=== PATIENT | male | born 1975 | race African-American/Black ===

== ENCOUNTER 2017-01-10 08:26 | Emergency (ER) ==
[2017-01-10 08:37] VITALS: BP 120/84; TEMP 97.1; BMI 21.6
--- NOTE | 2017-01-10 08:50 | ED.PDOC ---
General ED Provider: Dr. TOSHA ELLIOTT Chief Complaint: Hip Pain/Injury Stated Complaint: Left hip pain yesterday with walking up steps. Williams a pop and now painful with moverments or walking. Time Seen by Physician: 08:45 Mode of Arrival: Walk-In Information Source: Patient, Family Primary Care Provider: FERNANDO LUCAS Nursing and Triage Documentation Reviewed and Agree: Yes Review of Systems - Review Of Systems Constitutional: Reports: No symptoms Musculoskeletal: Reports: Joint pain (Left hip) Skin: Reports: No symptoms. Denies: Bruising, Change in color (At site of L hip ) All Other Systems: Reviewed and Negative Past Medical History - Past Medical History Previously Healthy: Yes Endocrine: Reports: None Cardiovascular: Reports: None Respiratory: Reports: Asthma Hematological: Reports: None Gastrointestinal: Reports: None Genitourinary: Reports: Kidney stones (2004 once- stone not recovered, one episode of hematuria one year ago- not since) Neuro/Psych: Reports: None Musculoskeletal: Reports: None Cancer: Reports: None Other Pertinent Past Medical History: Jaw wired - Surgical History General Surgical History: Reports: Other ( jaw wired shut; tordes pallitini removed) - Family History Family History: Reports: Unknown - Social History Smoking Status: Former smoker Hx Substance Use: No Alcohol Screening: Occasionally - Immunizations Tetanus Shot up to Date: Yes Physical Exam - Physical Exam Appearance: Well-appearing Pain Distress: Mild (with L hip movemtnt) Respiratory: Airway patent, Respirations nonlabored Musculoskeletal: Normal strength, ROM intact (Able to raise L and R legs separately with flexion at hips without difficulty. ROM L hip intact.), No edema Skin: Warm, Dry, Normal color Neurological: Sensation intact, Motor intact, Reflexes intact, Alert, Oriented Psychiatric: Affect appropriate, Mood appropriate Interpretation - Radiology Interpretation Radiology Interpretation By: Radiologist Radiology Results: Negative (Comparrison with CT 09/12/16) Exam Interpreted: Other (L Hip/Pelvis) Re-Evaluation - Re-Evaluation Time of Re-Evaluation: 09:55 Status: Unchanged Vital Signs Stable: Yes Appearance: NAD (Educated re negative X Ray; pain appears to be muscular in origin) Critical Care Note - Critical Care Note Total Time (mins): 15 Course - Course Orders, Labs, Meds: Orders Category Date Time Status PELVIS & JESUS HIPS Stat RADS 01/10/17 08:54 Completed Vital Signs: Temp Pulse Resp BP Pulse Ox 01/10/17 08:29 97.1 F L 80 16 120/84 97 Departure - Departure Time of Disposition: 10:12 Disposition: HOME SELF-CARE Discharge Problem: Hip pain, left Instructions: Hip Pain (ED) Condition: Good Pt referred to PMD for follow-up: Yes (Call for appointment) Additional Instructions: Use antiinflamatories and pain medications as prescribed. Follow up with primary care; call for appointment. Prescriptions: Ibuprofen [Motrin] 600 mg PO Q6H #30 tablet Tramadol HCl [Ultram] 50 mg PO Q6H #10 tablet Allergies/Adverse Reactions: Allergies No Known Allergies Allergy (Verified 01/10/17 08:28) Home Medications: Ambulatory Orders Ibuprofen [Motrin] 600 mg PO Q6H #30 tablet 01/10/17 Tramadol HCl [Ultram] 50 mg PO Q6H #10 tablet 01/10/17
--- NOTE | 2017-01-10 09:26 | DI ---
Examination: Two radiographic images of the pelvis with frog-leg images of the right and left hips. Total of four radiographic images were obtained. Comparison: CT scan performed 09/12/2016. Reason for study: Sudden onset of left hip pain. FINDINGS: No acute fracture or dislocation. The pelvic ring is intact. The femoral heads articula te with the acetabula bilaterally. No unexplained osseous retained foreign body or malalignment. Impression: No acute fracture or dislocation is seen within the pelvis or either hip.
== END 2017-01-10 10:30 | disposition home or self-care (01) ==
LOC: ED 08:26
DX: M25.552 Pain in left hip (principal)
CPT/HCPCS: 99283

== ENCOUNTER 2017-02-27 16:15 | Outpatient (CLI) | END 2017-02-27 16:16 | disposition home or self-care (01) | LOC: LAB 16:15 | PROVIDERS: ATTEND Nurse Practitioner Family | DX: J03.00 Acute streptococcal tonsillitis, unspecified (principal) | CPT/HCPCS: 87880 ==

== ENCOUNTER 2017-04-20 21:54 | Emergency (ER) ==
[2017-04-20 21:54] VITALS: BMI 21.6
[2017-04-20] MEDS ORDERED: TETANUS DIPHTHERIA TOXOIDS IM ONE (21:55)
[2017-04-20] MEDS ORDERED: LIDOCAINE 1 % AMP 5 ML (SUTURES) SUBCUT STA (21:55)
[2017-04-20] MEDS ORDERED: LIDOCAINE 1 % AMP 5 ML (SUTURES) ONE (21:56)
--- NOTE | 2017-04-20 22:07 | ED.PDOC ---
General ED Provider: Dr. LINA NASH-ER Chief Complaint: Laceration Stated Complaint: broken glass from window cut my wrist Time Seen by Physician: 22:06 Mode of Arrival: Walk-In Information Source: Patient, Family Primary Care Provider: JOSE ALBERTO FUENTES-[facility] [place] Nursing and Triage Documentation Reviewed and Agree: Yes Skin Complaint Exam - Laceration/Upper Ext. Complaint/Exam Location of Injury: Right, Forearm Mechanism of Injury: Laceration Onset/Duration: 30 min Symptoms Are: Still present Initial Severity: Mild Current Severity: Mild Aggravating: Movement Alleviating: Compression Associated Signs and Symptoms: Denies: Fever, Chills, Erythema, Numbness, Tingling Differential Diagnoses: Laceration Review of Systems - Review Of Systems Constitutional: Reports: No symptoms Eyes: Reports: No symptoms Ears, Nose, Mouth, Throat: Reports: No symptoms Respiratory: Reports: No symptoms Cardiac: Reports: No symptoms GI: Reports: No symptoms : Reports: No symptoms Musculoskeletal: Reports: No symptoms Skin: Reports: No symptoms Neurological: Reports: No symptoms Endocrine: Reports: No symptoms Hematologic/Lymphatic: Reports: No symptoms All Other Systems: Reviewed and Negative Past Medical History - Past Medical History Previously Healthy: Yes Endocrine: Reports: None Cardiovascular: Reports: None Respiratory: Reports: Asthma Hematological: Reports: None Gastrointestinal: Reports: None Genitourinary: Reports: Kidney stones (2004 once- stone not recovered, one episode of hematuria one year ago- not since) Neuro/Psych: Reports: None Musculoskeletal: Reports: None Cancer: Reports: None Other Pertinent Past Medical History: Jaw wired - Surgical History General Surgical History: Reports: Other ( jaw wired shut; tordes pallitini removed) - Family History Family History: Reports: Unknown - Social History Smoking Status: Former smoker Hx Substance Use: No Alcohol Screening: Occasionally Lives: With family Physical Exam - Physical Exam Appearance: Well-appearing Pain Distress: Mild Eyes: BRONWYN, EOMI, Conjunctiva clear ENT: Ears normal, Nose normal, Oropharynx normal Neck: Supple Respiratory: Airway patent Cardiovascular: RRR, Pulses normal, No rub, No murmur GI/: Soft, Nontender, No masses, Bowel sounds normal, No Organomegaly Musculoskeletal: Normal strength Skin: Warm, Dry, Normal color Neurological: Sensation intact, Motor intact, Reflexes intact, Cranial nerves intact, Alert, Oriented Psychiatric: Affect appropriate, Mood appropriate Procedures - Laceration/Wound Repair No standard instances Wound Description: Linear Wound Length (cm): 2cm right wrist Wound Explored: Clean Wound Irrigated: No Wound Prep: Tatiannaiclens Anesthesia: Lidocaine Wound Repaired With: Sutures Suture Size and Type: 3 4.0 prolene Number of Sutures: 3 Layer Closure?: No Sterile Dressing Applied?: Yes Splint Applied?: No Sling Applied?: No Re-Evaluation - Re-Evaluation Time of Re-Evaluation: 22:07 Status: Improved (good flexion and extension--no obvious tendon involvemnt) Vital Signs Stable: Yes Pain Level: 1 Appearance: NAD Lungs: Clear Skin: Warm and Dry Neuro: Alert and Oriented X3 CV: RRR Critical Care Note - Critical Care Note Total Time (mins): 0 Course - Course Orders, Labs, Meds: Orders Category Date Time Status Lidocaine HCl/Pf [Lidocaine 1 % Amp 5 ml (Sutures)] MEDS 04/20/17 21:56 Discontinued 5 ml .ROUTE .STK-MED ONE Lidocaine HCl/Pf [Lidocaine 1 % Amp 5 ml (Sutures)] MEDS 04/20/17 21:55 Discontinued 5 ml SUBCUT ONCE STA Tetanus and Diphtheria Tox/Pf [Tenivac] MEDS 04/20/17 22:08 Discontinued 0.5 ml IM .STK-MED ONE Tetanus, Diphtheria Tox,Adult [Tetanus Diphtheria MEDS 04/20/17 21:55 Discontinued Toxoids] 0.5 ml IM .ONCE ONE Medications Discontinued Medications Generic Name Dose Route Start Last Admin Trade Name Freq PRN Reason Stop Dose Admin Lidocaine HCl 5 ml 04/20/17 21:55 04/20/17 22:10 Lidocaine 1 % Amp 5 Ml (Sutures) SUBCUT 04/20/17 21:56 5 ml ONCE STA Administration Tetanus/Diphtheria Toxoids 0.5 ml 04/20/17 21:55 04/20/17 22:11 Tetanus Diphtheria Toxoids IM 04/20/17 21:56 0.5 ml .ONCE ONE Administration patient declines xrays) Vital Signs: Temp Pulse Resp BP Pulse Ox 04/20/17 21:57 99.1 F 61 20 108/69 100 Departure - Departure Time of Disposition: 22:08 Disposition: HOME SELF-CARE Discharge Problem: Laceration - injury Instructions: Laceration (ED), Care For Your Stitches (ED) Condition: Good Pt referred to PMD for follow-up: Yes Additional Instructions: routine suture care==sutures out in 7days--return if any signs of infection Allergies/Adverse Reactions: Allergies No Known Allergies Allergy (Verified 04/20/17 22:09) Home Medications: Ambulatory Orders 1 [No Reported Medications] 04/20/17 Disposition Discussed With: Patient, Family
[2017-04-20 22:08] VITALS: BP 108/69; TEMP 99.1
[2017-04-20] MEDS ORDERED: TENIVAC IM ONE (22:08)
== END 2017-04-20 22:55 | disposition home or self-care (01) ==
LOC: ED 21:54
DX: S61.511A Laceration without foreign body of right wrist, initial encounter (principal); W25.XXXA Contact with sharp glass, initial encounter
CPT/HCPCS: 90471; 99283

== ENCOUNTER 2017-05-01 09:51 | Outpatient (CLI) ==
--- NOTE | 2017-05-01 10:57 | CT ---
EXAM: CT scan of the right forearm without contrast HISTORY: Laceration, weak right hand line and frame poler strength TECHNIQUE: Imaging of the right forearm was performed without contrast. Axial images and coronal a nd sagittal reconstructions were provided for interpretation. FINDINGS: The musculature appears intact. No acute fractures are seen within the osseous structure s. No definite radiopaque foreign bodies are seen. There is no evidence of fluid collection. IMPRESSION: No evidence of injury to the musculature of the right forearm. No acute fractures are seen within the osseous structures.
== END 2017-05-01 09:52 | disposition home or self-care (01) ==
LOC: RAD 09:51
PROVIDERS: ATTEND Nurse Practitioner Family
DX: S51.811A Laceration without foreign body of right forearm, initial encounter (principal); M79.631 Pain in right forearm; R29.898 Other symptoms and signs involving the musculoskeletal system

== ENCOUNTER 2019-04-23 09:22 | Emergency (ER) ==
[2019-04-23 09:26] VITALS: BP 134/89; TEMP 99.2; BMI 22.3
--- NOTE | 2019-04-23 10:15 | DI ---
EXAM: Three views of the right ankle. History: Right ankle pain and trauma. Findings: No acute fracture or dislocation. No abnormal calcifications or radiopaque foreign bodies . Joint spaces are preserved. Impression: No acute osseous abnormality
--- NOTE | 2019-04-23 10:15 | DI ---
EXAM: Three views of the right foot. History: Right foot pain and trauma. Findings: No acute fracture or dislocation. No abnormal calcifications or radiopaque foreign bodies . Joint spaces are preserved. Impression: No acute osseous abnormality
--- NOTE | 2019-04-23 10:42 | ED.PDOC ---
General ED Provider: Dr. YEYO CAVAZOS Chief Complaint: Foot Pain/Injury Stated Complaint: foot pain right after dropping a can of can food on it Time Seen by Physician: 09:33 Mode of Arrival: Walk-In Information Source: Patient Exam Limitations: No limitations Primary Care Provider: JOSE ALBERTO FUENTES-[facility] Nursing and Triage Documentation Reviewed and Agree: Yes Does patient meet sepsis criteria?: No System Inflammatory Response Syndrome: Not Applicable Sepsis Protocol: For patient's 13 years and over: Temp is 96.8 and below OR 101 and greater Pulse >90 BPM Resp >20/minute Acutely Altered Mental Status Are patient's symptoms suggestive of a new infection, such as: -Pneumonia -Skin, Soft Tissue -Endocarditis -UTI -Bone, Joint Infection -Implantable Device -Acute Abdominal Infection -Wound Infection -Meningitis -Blood Stream Catheter Infection -Unknown Musculoskeletal Complaint Exam - Ankle/Foot Complaint/Exam Location of Injury: Reports: Right, Ankle Mechanism of Injury: Reports: Trauma (blunt fore can food) Onset/Duration: 1 day Symptoms Are: Reports: Still present Onset of Pain: Reports: Immediate Initial Severity: Mild Current Severity: Mild Location: Reports: Discrete (top of the foot some pain ankle ) Character: Reports: Dull Alleviating: Reports: Rest Aggravating: Reports: Movement Able to Bear Weight: Yes Associated Signs and Symptoms: Denies: Swelling, Redness, Bruising, Fever, Weakness, Numbness, Tingling Gout Risk Factors: Reports: >40 years old Related Surgical History: Reports: None Lower Extremity Findings: Absent: Swelling, Ecchymosis, Abnormal contour, Laceration, Erythema Review of Systems - Review Of Systems Constitutional: Reports: No symptoms Eyes: Reports: No symptoms Ears, Nose, Mouth, Throat: Reports: No symptoms Respiratory: Reports: No symptoms Cardiac: Reports: No symptoms GI: Reports: No symptoms : Reports: No symptoms Musculoskeletal: Reports: Joint pain (foot. ankle) Skin: Reports: No symptoms Neurological: Reports: No symptoms Endocrine: Reports: No symptoms Hematologic/Lymphatic: Reports: No symptoms All Other Systems: Reviewed and Negative Past Medical History - Past Medical History Previously Healthy: Yes Endocrine: Reports: None Cardiovascular: Reports: None Respiratory: Reports: Asthma Hematological: Reports: None Gastrointestinal: Reports: None Genitourinary: Reports: Kidney stones (2004 once- stone not recovered, one episode of hematuria one year ago- not since) Neuro/Psych: Reports: None Musculoskeletal: Reports: None Cancer: Reports: None Other Pertinent Past Medical History: Jaw wired - Surgical History General Surgical History: Reports: Other ( jaw wired shut; tordes pallitini removed) - Family History Family History: Reports: Unknown - Social History Smoking Status: Former smoker Hx Substance Use: No Alcohol Screening: Occasionally - Immunizations Tetanus Shot up to Date: Yes Physical Exam - Physical Exam Appearance: Well-appearing, No pain distress, Well-nourished Eyes: BRONWYN, EOMI, Conjunctiva clear ENT: Ears normal, Nose normal, Oropharynx normal Respiratory: Airway patent, Breath sounds clear, Breath sounds equal, Respirations nonlabored Cardiovascular: RRR, Pulses normal, No rub, No murmur GI/: Soft, Nontender, No masses, Bowel sounds normal, No Organomegaly Musculoskeletal: Normal strength, ROM intact, No edema, No calf tenderness Skin: Warm, Dry, Normal color Neurological: Sensation intact, Motor intact, Reflexes intact, Cranial nerves intact, Alert, Oriented Psychiatric: Affect appropriate, Mood appropriate Interpretation - Radiology Interpretation Radiology Interpretation By: Radiologist Radiology Results: No acute changes Critical Care Note - Critical Care Note Total Time (mins): 0 Course - Course Orders, Labs, Meds: Orders Category Date Time Status ANKLE, RIGHT MIN 3 VIEWS Stat RADS 04/23/19 09:43 Completed FOOT, RIGHT 3 VIEWS Stat RADS 04/23/19 09:43 Completed Vital Signs: Temp Pulse Resp BP Pulse Ox 04/23/19 09:23 99.2 F 82 16 134/89 97 Departure - Departure Time of Disposition: 10:42 Disposition: HOME SELF-CARE Discharge Problem: Sprain of foot, right Qualifiers: Encounter type: initial encounter Qualified Code(s): S93.601A - Unspecified sprain of right foot, initial encounter Instructions: Foot Sprain (ED) Condition: Good Pt referred to PMD for follow-up: Yes IPMP verified?: No Additional Instructions: Please call your Family Physician as soon as possible to schedule a follow-up appointment. Allergies/Adverse Reactions: Allergies No Known Allergies Allergy (Verified 04/20/17 22:09) Home Medications: Ambulatory Orders 1 [No Reported Medications] 04/20/17
== END 2019-04-23 10:50 | disposition home or self-care (01) ==
LOC: ED 09:22
DX: S93.601A Unspecified sprain of right foot, initial encounter (principal); W22.8XXA Striking against or struck by other objects, initial encounter
CPT/HCPCS: 99283